=== PATIENT | male | born 1990 | race African-American/Black ===

== ENCOUNTER 2021-06-16 19:43 | Emergency (ER) | payer OTHER ==
[~2021-06-16] VITALS: Ht 182.9 cm; Wt 120.2 kg
[2021-06-16 19:58] VITALS: BP 162/110
== END 2021-06-17 02:20 | disposition left against medical advice (07) ==
LOC: M.ERS 19:43
DX: F41.9 Anxiety disorder, unspecified (principal); Z53.21 Procedure and treatment not carried out due to patient leaving prior to being seen by health care provider